=== PATIENT | male | born 1965 | race Caucasian/White ===

== ENCOUNTER 2020-11-11 22:01 | Emergency (ER) | payer SELFPAY ==
[~2020-11-11] VITALS: Ht 180.3 cm; Wt 75.0 kg
--- NOTE | 2020-11-11 22:06 | PHYS DOC ---
Past History Past Medical History History of hypokalemia episodes General Adult EDM: Chief Complaint: HYPOKALEMIA HPI: HPI: "....I get really weak when my potassium is low.. This is something that runs in my family.. on my Mom's side.. " Patient is a 55 year old male who presents with above hx and complaints of weakness and myalgia. Patient states he gets this way when he has low potassium. Patient has a family history of low potassium levels with his mother and her side of the family. Patient poorly has missed several doses of his home potassium supplement. Patient denies any travel. Patient denies any significant ill contacts. Patient has not gotten Covid vaccination. Patient normally follows at [facility] on the [place] for his low potassium levels. Review of Systems: Review of Systems: Constitutional: Denies fever or chills Eyes: Denies change in visual acuity HENT: Denies nasal congestion or sore throat Respiratory: Denies cough or shortness of breath Cardiovascular: Denies chest pain or edema GI: Denies abdominal pain, nausea, vomiting, bloody stools or diarrhea : Denies dysuria Musculoskeletal: Complains of generalized weakness and myalgia. Integument: Denies rash Neurologic: Denies headache, focal weakness or sensory changes Endocrine: Denies polyuria or polydipsia Lymphatic: Denies swollen glands Psychiatric: Denies depression or anxiety Family History: Family History: Mother has history of critical low potassium episodes Current Medications: Current Meds: See nursing for home meds Allergies: Allergies: No known drug allergies Physical Exam: PE: Constitutional: Well developed, well nourished, no acute distress, non-toxic appearance. [] HENT: Normocephalic, atraumatic, bilateral external ears normal, oropharynx moist, no oral exudates, nose normal. [] Eyes: PERRLA, EOMI, conjunctiva normal, no discharge. [] Neck: Normal range of motion, no tenderness, supple, no stridor. [] Cardiovascular: Tachycardia heart rate regular rhythm, no murmur [] Lungs & Thorax: Bilateral breath sounds clear to auscultation [] Abdomen: Bowel sounds normal, soft, no tenderness, no masses, no pulsatile masses. [] Midl line scar- from gastric ulcer surgery. Skin: Warm, dry, no erythema, no rash. [] Back: No tenderness, no CVA tenderness. [] Extremities: No tenderness, no cyanosis, no clubbing, ROM intact, no edema. Complains of cramping in legs and arms. No cording appreciated Neurologic: Alert and oriented X 3, moves all extremities on request, has distal sensory,, no focal deficits noted. [] Psychologic: Affect anxious, judgement normal, mood normal. [] EKG: EKG: My interpretation EKG shows a sinus rhythm at 93 bpm. Right bundle branch block. Prolonged QT interval at 396 ms. QTc is 495 ms. No findings acute STEMI or contralateral changes. No obvious U waves and ventricle leads. [] Radiology/Procedures: Radiology/Procedures: [] Heart Score: C/O Chest Pain: N/A HEART Score for Chest Pain: HEART Score for Chest Pain Response (Comments) Value History Slighlty/Non-Suspicious 0 ECG Normal 0 Age >45 - < 65 1 Risk Factors 1 or 2 Risk Factors 1 Troponin < Normal Limit 0 Total 2 Risk Factors: Risk Factors: DM, Current or recent (<one month) smoker, HTN, HLP, family history of CAD, obesity. Risk Scores: Score 0 - 3: 2.5% MACE over next 6 weeks - Discharge Home Score 4 - 6: 20.3% MACE over next 6 weeks - Admit for Clinical Observation Score 7 - 10: 72.7% MACE over next 6 weeks - Early Invasive Strategies Course & Med Decision Making: Course & Med Decision Making Pertinent Labs and Imaging studies reviewed. (See chart for details) Patient continue his potassium supplementation. Follow-up primary care. Return if any concerns. Impression: 1. Hypokalemia 2.2 2. Hypomagnesium 1.6 [] Dragon Disclaimer: Dragon Disclaimer: This electronic medical record was generated, in whole or in part, using a voice recognition dictation system. Departure Departure: Scripts Potassium Chloride (K-TAB) 10 Meq Tablet.er 40 MEQ PO DAILY for hypokalemia for 30 Days, #120 TAB.SR Prov: LACHELLE SAUCEDO MD 11/12/20 [place] Disclaimer This chart was dictated in whole or in part using Voice Recognition software in a busy, high-work load, and often noisy Emergency Department environment. It may contain unintended and wholly unrecognized errors or omissions. Dragon Disclaimer This chart was dictated in whole or in part using Voice Recognition software in a busy, high-work load, and often noisy Emergency Department environment. It may contain unintended and wholly unrecognized errors or omissions. LACHELLE SAUCEDO MD Nov 11, 2020 22:06
[2020-11-11] MEDS ORDERED: POTASSIUM CHLORIDE 20 MEQ TABLET.ER. PO ONE (22:30)
[2020-11-11] MEDS ORDERED: IV RINGERS SOLUTION,LACTATED 1,000 ML IV SCH (22:30)
[2020-11-11 23:19] LABS: BASO # 0.1 x10^3/uL (0.0-0.2); BASO % 2 % (0-3); EOS # 0.2 x10^3/uL (0.0-0.7); EOS % 5 % (0-3); HEMATOCRIT 39.3 % (39.0-53.0); HEMOGLOBIN 13.3 g/dL (13.0-17.5); LYMPH # 1.3 x10^3/uL (1.0-4.8); LYMPH % 27 % (24-48); MEAN CORPUSCULAR HEMOGLOBIN 32 pg (25-35); MEAN CORPUSCULAR HGB CONC 34 g/dL (31-37); MEAN CORPUSCULAR VOLUME 94 fL (79-100); MONO # 0.3 x10^3/uL (0.0-1.1); MONO % 6 % (0-9); NEUT # 2.9 x10^3uL (1.8-7.7); NEUT % 61 % (31-73); PLATELET COUNT 199 x10^3/uL (140-400); RED CELL DISTRIBUTION WIDTH 14.4 % (11.5-14.5); WHITE BLOOD COUNT 4.7 x10^3/uL (4.0-11.0)
[2020-11-11 23:39] LABS: ALBUMIN 3.2 g/dL (3.4-5.0); ALK PHOS 123 U/L (46-116); ALT (SGPT) 35 U/L (16-63); ANION GAP 12 (6-14); AST (SGOT) 34 U/L (15-37); BLOOD UREA NITROGEN 6 mg/dL (8-26); CARBON DIOXIDE 26 mmol/L (21-32); CHLORIDE 100 mmol/L (98-107); CREATININE 0.8 mg/dL (0.7-1.3); GFR 101.1; GLUCOSE 150 mg/dL (70-99); MAGNESIUM 1.6 mg/dL (1.8-2.4); SODIUM 138 mmol/L (136-145); TOTAL BILIRUBIN 0.1 mg/dL (0.2-1.0); TOTAL PROTEIN 6.9 g/dL (6.4-8.2)
[2020-11-11 23:43] LABS: DIRECT BILIRUBIN < 0.1 mg/dL (0.0-0.2); POTASSIUM 2.2 mmol/L (3.5-5.1)
[2020-11-12] MEDS ORDERED: POTASSIUM CHLORIDE 20MEQ 200 ML IV ONE (00:17)
[2020-11-12] MEDS ORDERED: POTASSIUM CHLORIDE 20MEQ 100 ML IV SCH (00:30)
[2020-11-12] MEDS ORDERED: MAGNESIUM HYDROXIDE 2,400 MG/30 ML ORAL.SUSP. PO ONE (00:45)
[2020-11-12] MEDS: POTASSIUM CHLORIDE 10MEQ 100 ML IV SCH ×4 (00:56→03:38)
[2020-11-12] MEDS ORDERED: ORPHENADRINE CITRATE 60 MG/2 ML VIAL. IM ONE (01:30)
[2020-11-12] MEDS ORDERED: KETOROLAC 30 MG/ML VIAL. IVP ONE (01:30)
[2020-11-12] MEDS ORDERED: MORPHINE SULFATE 10 MG/ML SYRINGE. SQ ONE (01:30)
[2020-11-12] MEDS ORDERED: POTASSIUM CHLORIDE 20 MEQ TABLET.ER. PO ONE (02:00)
--- NOTE | 2020-11-12 03:33 | EKG ---
[address] [address] Test Date: 2020-11-11 Test Time: 22:26:06 Pat Name: SANA HOLLY Department: Room: Gender: M Teacher Asst: : [id number] Requested By: LACHELLE SAUCEDO Order Number: [id number] Reading MD: Liang Cespedes Measurements Intervals [place] Rate: 93 P: 24 [place]: 180 QRS: 68 QRSD: 90 T: 60 QT: 396 QTc: 495 Interpretive Statements SINUS RHYTHM INCOMPLETE RIGHT BUNDLE BRANCH BLOCK PROLONGED QT NO SPECIFIC ECG ABNORMALITIES RI6.02 No previous ECG available for comparison Electronically Signed On 11-13-2020 13:14:25 CDT by Liang Cespedes
[2020-11-12 04:15] VITALS: BP 138/91
[2020-11-12] MEDS ORDERED: POTA10TA PO (04:37)
--- NOTE | 2020-11-14 10:13 | NUR ---
IP: Late entry: Attempted to contact pt concerning covid results on 11/13/20. No answer, left a voicemail to return the call.
--- NOTE | 2020-11-15 10:17 | NUR ---
IP: Attempted thrid time to contact pt. Again no answer. Results mailed today.
== END 2020-11-12 04:30 | disposition home or self-care (01) ==
LOC: ER 22:01
DX: E87.6 Hypokalemia (principal); E83.42 Hypomagnesemia; Z20.822 Contact with and (suspected) exposure to COVID-19
CPT/HCPCS: 36415; 80048; 80076; 83735; 83880; 84443; 84484; 85025; 93005; 96361; 96365; 96366; 96372; 96375; 99285; C9803; J1885; J2270; J2360; J3480; J7120; U0003